=== PATIENT | male | born 1990 | race Two or more races ===

== ENCOUNTER 2019-11-03 16:00 | Emergency (ER) | payer OTHER ==
[2019-11-03 16:16] VITALS: BP 143/78; PULSE 64; RESP 18; TEMP 97.9
--- NOTE | 2019-11-03 17:12 | ED ---
Extremity Problem HPI - General Chief complaint: Extremity Problem,Nontraumatic Stated complaint: Back/leg pain Source: patient Mode of arrival: ambulatory Limitations: no limitations - History of Present Illness Initial comments: 29yo male presenting today for chief complaint of left-sided low back pain that radiates down left leg toward the left knee knee. Patient states that he has had for the past 2 days of left low back pain that radiates towards his left leg. Patient states that he did not have any injuries fall direct trauma denies IV drug use fevers loss of bowel bladder control urinary retention weakness of the leg sensation deficits of the leg. Patient denies any history of cancer or chronic steroid use. Patient denies any coldness pallor of the extremity or history of DVT. Patient states she did have a previous abscess of the right leg. The states that pain was more localized and does not radiate down from the back patient denies flank pain. Denies dysuria, urgency frequency or hemturia. Patient denies specific heavy lifting. Remaining ROS (-). - Related Data Previous Rx's Medication Instructions Recorded Ibuprofen 800 mg PO Q8H PRN 7 Days #21 tablet 11/03/19 predniSONE 20 mg PO DAILY 5 Days #5 tab 11/03/19 Allergies Allergy/AdvReac Type Severity Reaction Status Date / Time Penicillins Allergy Unknown Verified 11/03/19 16:16 Review of Systems ROS Statement: Those systems with pertinent positive or pertinent negative responses have been documented in the HPI. ROS Other: All systems not noted in ROS Statement are negative. Past Medical History Past Medical History: No Reported History Additional Past Medical History / Comment(s): SCOLIOSIS History of Any Multi-Drug Resistant Organisms: MRSA Date of last positivie culture/infection: 2007 MDRO Source:: butt Past Surgical History: Appendectomy Past Psychological History: No Psychological Hx Reported Smoking Status: Current every day smoker Past Alcohol Use History: Rare Past Drug Use History: None Reported General Exam - General Exam Comments Initial Comments: General: The patient is awake and alert, in no distress, and does not appear acutely ill. Eye: Pupils are equal, round and reactive to light, extra-ocular movements are intact. No nystagmus. There is normal conjunctiva bilaterally. No signs of icterus. Cardiovascular: There is a regular rate and rhythm. No murmur, rub or gallop is appreciated. Respiratory: Lungs are clear to auscultation, respirations are non-labored, breath sounds are equal. No wheezes, stridor, rales, or rhonchi. Gastrointestinal: Soft, non-distended, non-tender abdomen without masses or organomegaly noted. There is no rebound or guarding present. No CVA tenderness. Bowel sounds are unremarkable. Musculoskeletal: MIld midline tenderness to palpation of the lumbar spine, near L2/L3 however moderate painto palpation of piriformis muscle and mid buttock. Normal inspection of the low back and buttock, thoracic spine. Some folliculitits without abscess of buttock noted, no redness or induration. Normal ROM, no tenderness of the LE b/l. Strength 5/5 of the LE, patient weight bears without difficulty. Sensation intact of the LE b/l. DP pulses equal bilaterally 2+. Neurological: A&O x 3. CN II-XII intact grossly, There are no obvious motor or sensory deficits. Coordination appears grossly intact. Speech is normal. Skin: Skin is warm and dry and no rashes or lesions are noted. Psychiatric: Cooperative, appropriate mood & affect, normal judgment. Limitations: no limitations Course Vital Signs 11/03/19 16:14 Temperature 97.9 F Pulse Rate 64 Respiratory 18 Rate Blood Pressure 143/78 O2 Sat by Pulse 96 Oximetry Medical Decision Making - Medical Decision Making 29-year-old male presenting for low back pain that radiates down left leg. Patient had no singificant abnormal skin findings.No clinical/history findings suggestive of caudq equina. patient has minimal midline tenderness, see paravertebral and of the piriformis muscle. Patient will be discharged with symptomatic treatment, strict return parameters, and pcp f/u and diagnosis of what is felt to be lumbar radiculopathy vs a piriform syndrome or sciatica. patient is agreeable to discharge and ambulatory appears well. Discussed case with attending Dr. Johnson - Lab Data Result diagrams: 11/03/19 17:25 11/03/19 17:25 Lab Results 11/03/19 11/03/19 Range/Units 17:25 17:25 WBC 10.5 (3.8-10.6) k/uL RBC 5.55 (4.30-5.90) m/uL Hgb 15.2 (13.0-17.5) gm/dL Hct 45.8 (39.0-53.0) % MCV 82.5 (80.0-100.0) fL MCH 27.3 (25.0-35.0) pg MCHC 33.1 (31.0-37.0) g/dL RDW 13.3 (11.5-15.5) % Plt Count 296 (150-450) k/uL Neutrophils % 69 % Lymphocytes % 20 % Monocytes % 5 % Eosinophils % 4 % Basophils % 1 % Neutrophils # 7.3 (1.3-7.7) k/uL Lymphocytes # 2.0 (1.0-4.8) k/uL Monocytes # 0.5 (0-1.0) k/uL Eosinophils # 0.4 (0-0.7) k/uL Basophils # 0.1 (0-0.2) k/uL Sodium 141 (137-145) mmol/L Potassium 4.6 (3.5-5.1) mmol/L Chloride 110 H (98-107) mmol/L Carbon Dioxide 23 (22-30) mmol/L Anion Gap 8 mmol/L BUN 10 (9-20) mg/dL Creatinine 0.68 (0.66-1.25) mg/dL Est GFR (CKD-EPI)AfAm >90 (>60 ml/min/1.73 sqM) Est GFR (CKD-EPI)NonAf >90 (>60 ml/min/1.73 sqM) Glucose 90 (74-99) mg/dL Calcium 9.8 (8.4-10.2) mg/dL Total Bilirubin 0.5 (0.2-1.3) mg/dL AST 28 (17-59) U/L ALT 35 (21-72) U/L Alkaline Phosphatase 73 (38-126) U/L Total Protein 7.0 (6.3-8.2) g/dL Albumin 4.2 (3.5-5.0) g/dL Disposition Clinical Impression: Low back pain, Radiculopathy Disposition: HOME SELF-CARE Condition: Good Instructions (If sedation given, give patient instructions): Lumbar Radiculopathy (ED) Additional Instructions: Please use medication as discussed. Please follow-up with family doctor in the next 2 days, and orthopedics as discussed. Please return to emergency room if the symptoms increase or worsen or for any other concerns. Prescriptions: Ibuprofen 800 mg PO Q8H PRN 7 Days #21 tablet PRN Reason: Pain predniSONE 20 mg PO DAILY 5 Days #5 tab Is patient prescribed a controlled substance at d/c from ED?: No Referrals: None,Stated [Primary Care Provider] - 1-2 days Bismark Benz DO [Doctor of Osteopathic Medicine] - 1-2 days Time of Disposition: 17:54
[2019-11-03 17:47] LABS: Basophils # (A) 0.1 k/uL (0-0.2); Basophils % (A) 1 %; Eosinophils # (A) 0.4 k/uL (0-0.7); Eosinophils % (A) 4 %; HCT 45.8 % (39.0-53.0); HGB 15.2 gm/dL (13.0-17.5); Lymphocytes % (A) 20 %; MCH 27.3 pg (25.0-35.0); MCHC 33.1 g/dL (31.0-37.0); MCV 82.5 fL (80.0-100.0); Mean Platelet Volume 8.1; Monocytes # (A) 0.5 k/uL (0-1.0); Monocytes % (A) 5 %; Neutrophils # (A) 7.3 k/uL (1.3-7.7); Neutrophils % (A) 69 %; Platelet Count 296 k/uL (150-450); RBC 5.55 m/uL (4.30-5.90); RDW 13.3 % (11.5-15.5); WBC 10.5 k/uL (3.8-10.6)
[2019-11-03] MEDS ORDERED: KETOROLAC 60 MG/2 ML VIAL IM STA (17:54)
[2019-11-03] MEDS ORDERED: ACET/COD 300 MG/30 MG STARTER PACK 6 TAB BTL PO STA (17:55)
[2019-11-03 18:00] LABS: ALT 35 U/L (21-72); AST 28 U/L (17-59); African American GFR (CKD) >90 (>60 ml/min/1.73 sqM); Albumin 4.2 g/dL (3.5-5.0); Alkaline Phosphatase 73 U/L (38-126); Anion Gap 8 mmol/L; Blood Urea Nitrogen 10 mg/dL (9-20); Calcium 9.8 mg/dL (8.4-10.2); Carbon Dioxide 23 mmol/L (22-30); Chloride 110 mmol/L (98-107); Glucose 90 mg/dL (74-99); Non-African American GFR(CKD) >90 (>60 ml/min/1.73 sqM); Potassium 4.6 mmol/L (3.5-5.1); Sodium 141 mmol/L (137-145); Total Bilirubin 0.5 mg/dL (0.2-1.3)
[2019-11-03] MEDS ORDERED: KETOROLAC 30 MG/ML 1 ML VIAL IVP STA (18:30)
== END 2019-11-03 18:30 | disposition home or self-care (01) ==
LOC: EC 16:00
DX: M54.16 Radiculopathy, lumbar region (principal); F17.200 Nicotine dependence, unspecified, uncomplicated; Z88.0 Allergy status to penicillin
CPT/HCPCS: 36415; 80053; 85025; 99283; 96374; J1885

== ENCOUNTER 2025-01-15 00:43 | Emergency (ER) | payer OTHER ==
--- NOTE | 2025-01-15 01:17 | ED ---
General Adult HPI - General Chief complaint: Abdominal Pain Stated complaint: stomach pain Time Seen by Provider: 01/15/25 00:58 Source: patient Mode of arrival: ambulatory Limitations: no limitations - History of Present Illness Initial comments: Patient is a 34-year-old male with no significant past medical history presenting today for epigastric pain. Patient was evening and dinner this evening which was a chicken salad with ranch dressing and shortly afterwards began having epigastric pain, nausea and vomiting. Had 2 episodes of nonbloody nonbilious emesis. Did feel short of breath briefly due to pain with deep breathing in the epigastrium. Currently denies chest pain. Denies cough or hemoptysis. Last bowel movement was this afternoon, described as normal and softer him, typically has 1-2 bowel movements a day. No constipation. Denies hematuria or dysuria. States that when the pain began did briefly radiate to his testicles though that resolved and now remains in his epigastrium, denies to Testicular pain or swelling. Endorses some lightheadedness after the onset of his symptoms. Denies any numbness tingling or weakness. Surgical history includes prior appendectomy. No pain meds prior to arrival - Related Data Previous Rx's Medication Instructions Recorded Ibuprofen 800 mg PO Q8H PRN 7 Days #21 tablet 11/03/19 predniSONE [Deltasone] 20 mg PO DAILY 5 Days #5 tab 11/03/19 Allergies Allergy/AdvReac Type Severity Reaction Status Date / Time Penicillins Allergy Unknown Verified 01/15/25 00:55 Review of Systems ROS Statement: Those systems with pertinent positive or pertinent negative responses have been documented in the HPI. ROS Other: All systems not noted in ROS Statement are negative. Past Medical History Past Medical History: No Reported History Additional Past Medical History / Comment(s): SCOLIOSIS History of Any Multi-Drug Resistant Organisms: MRSA Date of last positivie culture/infection: 2007 MDRO Source:: butt Past Surgical History: Appendectomy Past Psychological History: No Psychological Hx Reported Past Alcohol Use History: Rare Past Drug Use History: None Reported General Exam - General Exam Comments Initial Comments: PE: CONSTITUTIONAL: No apparent distress, nontoxic, mildly ill-appearing, uncomfortable appearing SKIN: Warm, dry, no jaundice, hives or petechiae EYES: Pupils are equally round, extraocular movements intact without nystagmus, clear conjunctiva, non-icteric sclera HENT: Normocephalic, atraumatic, moist mucus membranes, oropharynx clear without exudates NECK: , Full range of motion, normal appearance PULMONARY: Clear to auscultation without wheezes, rhonchi, or rales, normal excursion, no accessory muscle use and no stridor CARDIOVASCULAR: Regular rate, rhythm, normal S1 and S2. No appreciated murmurs, rubs or gallops. Strong radial pulses with intact distal perfusion. No lower extremity edema GASTROINTESTINAL: Soft, active bowel sounds throughout, tenderness palpation in the epigastrium, positive Ching sign, non-distended, no palpable masses guarding with elevation of the right upper quadrant. No hepatosplenomegaly GENITOURINARY: MUSCULOSKELETAL: Extremities have no gross deformity, no edema, redness, or swelling. No calf swelling NEUROLOGIC:_a/o x 3, GCS 15, normal mentation and speech. Moves all extremities x 4 without motor or sensory deficit PSYCHIATRIC:_normal mood and affect, thought process is clear and linear Limitations: no limitations Course Vital Signs 01/15/25 01/15/25 01/15/25 00:51 02:44 04:07 Temperature 97.6 F 98.2 F Pulse Rate 61 66 59 L Respiratory 20 20 18 Rate Blood Pressure 151/77 132/72 138/74 O2 Sat by Pulse 99 98 98 Oximetry EKG Findings - EKG Comments: EKG Findings:: Sinus rhythm with respiratory variation, rate 80 bpm intervals within normal limits normal axis, no ST elevations or depressions no arrhythmia Medical Decision Making - Medical Decision Making Was pt. sent in by a medical professional or institution (, PA, CONSTRUCTION PRO[employer]ISTANT, urgent ca re, hospital, or intermediate...) When possible be specific @ -No Did you speak to anyone other than the patient for history (EMS, parent, family, police, friend...)? What history was obtained from this source @ -No Did you review nursing and triage notes (agree or disagree)? Why? @ -I reviewed nursing and triage notes Were old charts reviewed (outside hosp., previous admission, EMS record, old EKG, old radiological studies, urgent care reports/EKG's, intermediate records)? Report findings @ -Medical records reviewed Differential Diagnosis (chest pain, altered mental status, abdominal pain women, abdominal pain men, vaginal bleeding, weakness, fever, dyspnea, syncope, headache, dizziness, GI bleed, back pain, seizure, CVA, palpatations, mental health, musculoskeletal)? @Differential Abdominal Pain Men: Appendicitis, cholecystitis, diverticulosis, ischemic bowel, pancreatitis, hepatitis, UTI, gastroenteritis, incarcerated hernia, bowel obstruction, constipation, inflammatory bowel, hepatitis, peptic ulcer disease, splenic infarction, perforated viscus, testicular torsion, this is not meant to be an all-inclusive list EKG interpreted by me (3pts min.). @ -As above X-rays interpreted by me (1pt min.). Chest x-ray abdominal x-ray reviewed, I see no evidence of acute process- No cardiomegaly or consolidations on CXR, no free air under diaphragm, no volvulus or other acute process on KUB CT interpreted by me (1pt min.). @ -None done U/S interpreted by me (1pt. min.). @Present appears to show dilated, bile duct approximately 6 mm on my review What testing was considered but not performed or refused? (CT, X-rays, U/S, labs)? Why? @ -None What meds were considered but not given or refused? Why? @ -None Was smoking cessation discussed for >3mins.? @ -No Was critical care preformed (if so, how long)? @ -No Were there social determinants of health that impacted care today? How? (Homelessness, low income, unemployed, alcoholism, drug addiction, transportation, low edu. Level, literacy, decrease access to med. care, nursing home, rehab)? @ -No Was there de-escalation of care discussed even if they declined (Discuss DNR or withdrawal of care, Hospice)? @ -No What co-morbidities impacted this encounter? (DM, HTN, Smoking, COPD, CAD, Cancer, CVA, ARF, Chemo, Hep., AIDS, mental health diagnosis, sleep apnea, morbid obesity)? @ BMI > 40 Was patient admitted / discharged? Hospital course, mention meds given and route, prescriptions, significant lab abnormalities, going to OR and other pertinent info. @ Transfer to [facility] for GI- patient is a 34-year-old gentleman past medical history prior appendectomy presenting today for epigastric and right upper quadrant pain that started after eating dinner this evening. Vital signs within acceptable limits on arrival. Exam significant for epigastric tenderness and positive Ching sign. Patient did have a recent episode of chest pain and shortness of breath with deep breathing, EKG showed no arrhythmia or signs of S RAJESH so we will obtain a chest x-ray in addition by do not feel patient requires cardiac enzymes at this point as he has no additional risk factors, beyond obesity, for ACS and I have a high suspicion for intra-abdominal pathology as cause of symptoms. Ordered ultrasound of right upper quadrant, KUB, comprehensive labs and urinalysis in addition to pain control and IV fluids. Ultrasound read as concerning for acute cholecystitis with positive Ching sign and a borderline dilated common bile duct of 5.9 mm. On reassessment patient's pain is 5 out of 10 slightly improved. Ordered additional pain medication. Due to potentially dilated common bile duct and cholecystitis we do not have GI he re so he will require transfer to a facility with gastroenterology. I updated patient to plan for transfer to [facility], he is agreeable with plan. Patient was accepted by gastroenterology, Dr. Ivy, at [facility]. Ordered Flagyl and Rocephin, patient does have a mild leukocytosis with a respiratory rate of 20 otherwise no hypotension, tachycardia or fever, he does technically meet SIRS criteria so a blood culture and lactic were added to workup. Patient transferred in stable condition. Undiagnosed new problem with uncertain prognosis? @ -No Drug Therapy requiring intensive monitoring for toxicity (Heparin, Nitro, Insulin, Cardizem)? @ -No Were any procedures done? @ -No Diagnosis/symptom? @Acute cholecystitis Acute, or Chronic, or Acute on Chronic? Acute Uncomplicated (without systemic symptoms) or Complicated (systemic symptoms)? @Complicated Side effects of treatment? @ -No Exacerbation, Progression, or Severe Exacerbation? @ -No Poses a threat to life or bodily function? How? (Chest pain, [place], [place], pneumonia, PE, COPD, DKA, ARF, appy, cholecystitis, CVA, Diverticulitis, Homicidal, Suicidal, threat to staff... and all critical care pts) @Yes - Lab Data Result diagrams: 01/15/25 01:22 01/15/25 01:22 Lab Results 01/15/25 01/15/25 01/15/25 Range/Units 01:22 01:22 01:22 WBC 13.7 H (3.8-10.6) k/uL RBC 5.11 (4.30-5.90) m/uL Hgb 13.6 (13.0-17.5) gm/dL Hct 41.5 (39.0-53.0) % MCV 81.3 (80.0-100.0) fL MCH 26.6 (25.0-35.0) pg MCHC 32.7 (31.0-37.0) g/dL RDW 13.8 (11.5-15.5) % Plt Count 213 (150-450) k/uL MPV 7.7 Neutrophils % 87 % Lymphocytes % 7 % Monocytes % 3 % Eosinophils % 1 % Basophils % 0 % Neutrophils # 12.0 H (1.3-7.7) k/uL Lymphocytes # 1.0 (1.0-4.8) k/uL Monocytes # 0.4 (0-1.0) k/uL Eosinophils # 0.2 (0-0.7) k/uL Basophils # 0.1 (0-0.2) k/uL PT 11.8 (10.0-12.5) sec INR 1.1 (<1.2) APTT 22.8 (22.0-30.0) sec Sodium 139 (137-145) mmol/L Potassium 4.1 (3.5-5.1) mmol/L Chloride 105 (98-107) mmol/L Carbon Dioxide 24 (22-30) mmol/L Anion Gap 10 mmol/L BUN 26 H (9-20) mg/dL Creatinine 0.89 (0.66-1.25) mg/dL Est GFR (CKD-EPI)AfAm >90 (>60 ml/min/1.73 sqM) Est GFR (CKD-EPI)NonAf >90 (>60 ml/min/1.73 sqM) Glucose 122 H (74-99) mg/dL Plasma Lactic Acid Jose (0.7-2.0) mmol/L Calcium 9.7 (8.4-10.2) mg/dL Total Bilirubin 0.5 (0.2-1.3) mg/dL AST 31 (17-59) U/L ALT 29 (4-49) U/L Alkaline Phosphatase 85 (38-126) U/L Total Protein 7.1 (6.3-8.2) g/dL Albumin 4.4 (3.5-5.0) g/dL Amylase 66 (30-110) U/L Lipase 56 (23-300) U/L Urine Color Urine Appearance (Clear) Urine pH (5.0-8.0) Ur Specific [place] (1.001-1.035) Urine Protein (Negative) Urine Glucose (UA) (Negative) Urine Ketones (Negative) Urine Blood (Negative) Urine Nitrite (Negative) Urine Bilirubin (Negative) Urine Urobilinogen (<2.0) mg/dL Ur Leukocyte Esterase (Negative) 01/15/25 01/15/25 Range/Units 02:59 04:15 WBC (3.8-10.6) k/uL RBC (4.30-5.90) m/uL Hgb (13.0-17.5) gm/dL Hct (39.0-53.0) % MCV (80.0-100.0) fL MCH (25.0-35.0) pg MCHC (31.0-37.0) g/dL RDW (11.5-15.5) % Plt Count (150-450) k/uL MPV Neutrophils % % Lymphocytes % % Monocytes % % Eosinophils % % Basophils % % Neutrophils # (1.3-7.7) k/uL Lymphocytes # (1.0-4.8) k/uL Monocytes # (0-1.0) k/uL Eosinophils # (0-0.7) k/uL Basophils # (0-0.2) k/uL PT (10.0-12.5) sec INR (<1.2) APTT (22.0-30.0) sec Sodium (137-145) mmol/L Potassium (3.5-5.1) mmol/L Chloride (98-107) mmol/L Carbon Dioxide (22-30) mmol/L Anion Gap mmol/L BUN (9-20) mg/dL Creatinine (0.66-1.25) mg/dL Est GFR (CKD-EPI)AfAm (>60 ml/min/1.73 sqM) Est GFR (CKD-EPI)NonAf (>60 ml/min/1.73 sqM) Glucose (74-99) mg/dL Plasma Lactic Acid Jose 1.1 (0.7-2.0) mmol/L Calcium (8.4-10.2) mg/dL Total Bilirubin (0.2-1.3) mg/dL AST (17-59) U/L ALT (4-49) U/L Alkaline Phosphatase (38-126) U/L Total Protein (6.3-8.2) g/dL Albumin (3.5-5.0) g/dL Amylase (30-110) U/L Lipase (23-300) U/L Urine Color Light Yellow Urine Appearance Clear (Clear) Urine pH 6.0 (5.0-8.0) Ur Specific [place] 1.029 (1.001-1.035) Urine Protein Negative (Negative) Urine Glucose (UA) Negative (Negative) Urine Ketones Negative (Negative) Urine Blood Negative (Negative) Urine Nitrite Negative (Negative) Urine Bilirubin Negative (Negative) Urine Urobilinogen 3.0 (<2.0) mg/dL Ur Leukocyte Esterase Negative (Negative) Disposition Clinical Impression: Acute cholecystitis Disposition: OTHER INSTITUTION NOT DEFINED Condition: Stable Referrals: None,Stated [Primary Care Provider] - 1-2 days - Out of Hospital Transfer - Req. Specs Out of Hospital Transfer - Requested Specifics: Other Emergency Center ([facility])
[2025-01-15] MEDS: SODIUM CHLORIDE 0.9% 1,000 ML IV STA (01:32)
[2025-01-15] MEDS: ONDANSETRON 4 MG/2 ML VIAL IVP STA (01:32)
[2025-01-15 01:34] LABS: Basophils # (A) 0.1 k/uL (0-0.2); Basophils % (A) 0 %; Eosinophils # (A) 0.2 k/uL (0-0.7); Eosinophils % (A) 1 %; HCT 41.5 % (39.0-53.0); HGB 13.6 gm/dL (13.0-17.5); Lymphocytes % (A) 7 %; MCH 26.6 pg (25.0-35.0); MCHC 32.7 g/dL (31.0-37.0); MCV 81.3 fL (80.0-100.0); Mean Platelet Volume 7.7; Monocytes # (A) 0.4 k/uL (0-1.0); Monocytes % (A) 3 %; Neutrophils % (A) 87 %; Platelet Count 213 k/uL (150-450); RBC 5.11 m/uL (4.30-5.90); RDW 13.8 % (11.5-15.5); WBC 13.7 k/uL (3.8-10.6)
[2025-01-15] MEDS: FAMOTIDINE 20 MG/2 ML VIAL IV STA (01:34)
[2025-01-15] MEDS: PANTOPRAZOLE 40 MG/10 ML VIAL IVP STA (01:36)
[2025-01-15 01:39] LABS: INR 1.1 (<1.2); Partial Thromboplastin Time 22.8 sec (22.0-30.0); Prothrombin Time 11.8 sec (10.0-12.5)
[2025-01-15] MEDS: MAG HYDROX/AL HYDROX/SIMETH 30 ML CUP PO STA (01:39)
[2025-01-15] MEDS: LIDOCAINE VISCOUS 2% 15 ML CUP PO ONE (01:39)
[2025-01-15 01:40] LABS: ALT 29 U/L (4-49); AST 31 U/L (17-59); African American GFR (CKD) >90 (>60 ml/min/1.73 sqM); Albumin 4.4 g/dL (3.5-5.0); Alkaline Phosphatase 85 U/L (38-126); Amylase 66 U/L (30-110); Anion Gap 10 mmol/L; Blood Urea Nitrogen 26 mg/dL (9-20); Calcium 9.7 mg/dL (8.4-10.2); Carbon Dioxide 24 mmol/L (22-30); Chloride 105 mmol/L (98-107); Glucose 122 mg/dL (74-99); Lipase 56 U/L (23-300); Non-African American GFR(CKD) >90 (>60 ml/min/1.73 sqM); Potassium 4.1 mmol/L (3.5-5.1); Sodium 139 mmol/L (137-145); Total Bilirubin 0.5 mg/dL (0.2-1.3); Total Protein 7.1 g/dL (6.3-8.2)
--- NOTE | 2025-01-15 03:18 | US ---
EXAM: US Abdomen Limited, Right Upper Quadrant CLINICAL HISTORY: epigastric pain, nausea, + ching's sign TECHNIQUE: Real-time ultrasound of the right upper quadrant with image documentation. COMPARISON: No relevant prior studies available. FINDINGS: Liver: The liver is hyperechoic in appearance and is borderline prominent, measuring 17.5 cm. No intrahepatic bile duct dilation. Gallbladder: There is a wall echo shadow sign involving the gallbladder. The gallbladder wall is prominent measuring 4.2 mm. There is a reported positive sonographic Ching sign. Common bile duct: The common bile duct measures 5.9 mm. No stones. No dilation. Pancreas: The pancreas is obscured by bowel gas pattern. Right kidney: The right kidney measures 10.8 x 4.9 x 5.7 cm. No stones. No hydronephrosis. Free fluid: No free fluid. IMPRESSION: 1. There is a wall echo shadow sign involving the gallbladder, consistent with gallstones filling the gallbladder. The gallbladder wall is prominent measuring 4.2 mm and there is a reported positive sonographic Ching sign. Findings are suspicious for acute cholecystitis. 2. The common bile duct is upper normal limits for the patient's age measuring 5.9 mm. 3. Hepatomegaly with evidence of hepatic steatosis.
--- NOTE | 2025-01-15 03:22 | XR ---
EXAM: XR Abdomen, 1 View CLINICAL HISTORY: Abdominal pain TECHNIQUE: Frontal supine view of the abdomen/pelvis. COMPARISON: No relevant prior studies available. FINDINGS: Gastrointestinal tract: Scattered bowel gas in nondilated small and large bowel. Mild stool burden, primarily in the right colon. Bones/joints: Unremarkable. No acute fracture. IMPRESSION: Nonspecific, nonobstructive bowel gas pattern.
--- NOTE | 2025-01-15 03:25 | XR ---
EXAM: XR Chest, 2 Views CLINICAL HISTORY: Epigastric pain, brief ep diff breathing TECHNIQUE: Frontal and lateral views of the chest. COMPARISON: Chest 2 views dated 09/27/2014 FINDINGS: Lungs: Shallow inspiration. No definite focal airspace consolidation. The pulmonary vasculature demonstrates no significant radiographic abnormality. Pleural space: Unremarkable. No pneumothorax. No large pleural effusion. Heart: The cardiac silhouette is upper normal limits and slightly more prominent than the previous examination. Mediastinum: Unremarkable. No significant abnormality identified. The trachea is midline. Bones/joints: Unremarkable. No acute fracture. Upper abdomen: No pneumoperitoneum. IMPRESSION: Poor inspiratory effort without definite focal consolidation or acute cardiopulmonary process identified.
[2025-01-15 03:44] LABS: Appearance,Urine Clear (Clear); Bilirubin,Urine Negative (Negative); Blood,Urine Negative (Negative); Color,Urine Light Yellow; Glucose,Urine (UA) Negative (Negative); Ketones,Urine Negative (Negative); Leukocyte Esterase,Urine Negative (Negative); Nitrite,Urine Negative (Negative); Protein,Urine Negative (Negative); Specific Gravity,Urine 1.029 (1.001-1.035)
[2025-01-15 04:08] VITALS: BP 138/74; PULSE 59; RESP 18; TEMP 98.2
[2025-01-15] MEDS: MORPHINE SULFATE 4 MG/ML SYRINGE IVP STA (04:08)
[2025-01-15] MEDS: cefTRIAXone IN SWFI 1,000 MG/10 ML SYRINGE IVP STA (04:10)
[2025-01-15] MEDS: metroNIDAZOLE-NS PMX 500 MG in SALINE 1 100ML.BAG IVPB STA (04:12)
== END 2025-01-15 04:20 | disposition other institution (70) ==
LOC: EC 00:43
DX: K81.0 Acute cholecystitis (principal); Z88.0 Allergy status to penicillin; Z68.41 Body mass index [BMI] 40.0-44.9, adult
CPT/HCPCS: 36415; 93005; 80053; 82150; 83605; 83690; 85025; 85610; 85730; 81003; 87040; 71046; 74018; 76705; 99285; 96365; 96375; 96361; J2270; J2405; J0696; J3490; J1836; J2470